=== PATIENT | female | born 1995 ===

== ENCOUNTER 2023-09-23 13:13 | Outpatient (AMB) | payer OTHER, SELFPAY ==
--- NOTE | 2023-09-23 13:21 | MHC.PC.OV ---
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 Transferring care from Unknown. Medical records have not been requested and have not received. Sales Engineer Engineered Products Required: Yes Sales Engineer Engineered Products Language: Lebanese Creole Sales Engineer Engineered Products Name: Luiz ([id number]) Information Interpreted: non-clinical & clinical Plaster Mixer: Present Accompanied by: Spouse Allergies No Known Allergies Allergy (Verified 09/23/23 13:43) Medication List - Last Reconciled 09/23/23 by ANEESH Louis No Known Home Meds Tobacco use date assessed: 09/23/23 Dental Screening Dental Screen Date: 09/23/23 Did you have a dental visit in the last 12 months?: No Did you have a dental problem in the last 6 months where you did not have access to dental care?: No Was dental information given to patient?: No HPI 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 Patient denies past medical history. Today we discussed patient's need for tetanus vaccine and cervical cancer screening. Patient reports dental exam last year. Denies problems with her eyes, does not see eye doctor. Patient is accompanied by her and 2 children. Patient speaks Lebanese Creole and online woods boss was incorporated into this visit [id number]. [facility] Surgical History No pertinent past surgical history Social History Housing: Other Housing Other:: [facility] Alcohol intake: never Patient Tobacco Use Status: Never used Tobacco e-Cigarette/Vaping Use: Never Used Second Hand Smoke Exposure: No service: No Current occupational status: employed Current occupation: [employer] Cognitive needs: No Hearing needs: No Vision needs: No Questionnaire PHQ-9 Over the last 2 weeks, how often have you been bothered by any of the following problems? 1. Little interest or pleasure in doing things: not at all 2. Feeling down, depressed, or hopeless: not at all 3. Trouble falling or staying asleep, or sleeping too much: not at all 4. Feeling tired or having little energy: not at all 5. Poor appetite or overeating: not at all 6. Feeling bad about yourself - or that you are a failure or have let yourself or your family down: not at all 7. Trouble concentrating on things, such as reading the newspaper or watching television: not at all 8. Moving or speaking so slowly that other people could have noticed. Or the opposite - being so fidgety or restless that you have been moving around a lot more than usual: not at all 9. Thoughts that you would be better off or of hurting yourself in some way: not at all Total score: 0 Depression Screening Interpretation: Negative Depression Screening Done: Yes 92435 - PHQ-9 Billing: Yes Source: Developed by Drs. Reggie Arango, Karolina Higuera, Germán Rowland and colleagues, with an educational daniel from [employer]. Thrive Questionnaire Date Thrive assessed: 09/23/23 I am a: Patient What is your living situation today?: I do not have a steady places to live Within the past 12 months, did the food you bought not last and you didn't have the money to get more?: Never true Within the past 12 months, did you worry whether your food would run out before you got money to buy more?: Never true Do you have trouble paying for medicines?: No Do you have trouble getting transportation to medical appointments?: No Do you have trouble paying your heating and electricity bill?: I choose not to answer this question Do you have trouble taking care of your child, family member or friend?: No Do you have trouble with day-to-day activities such as bathing, preparing meals, shopping, managing finances, etc.?: No Are you currently unemployed and looking for a job?: No Are you interested in more education?: No Currently or been in a relationship where the following occur: no concerns reported AUDIT C Alcohol Use Questionnaire (AUDIT-C) 1. How often do you have a drink containing alcohol?: Never Total Score: 0 Score Reviewed/Action Taken: No SHIRLENE-7 AMB Questionnaire SHIRLENE-7 Date SHIRLENE - 7 assessed: 09/23/23 Feeling nervous, anxious, or on edge: 0 = Not at all Not being able to stop or control worryin = Not at all Worrying too much about different things: 0 = Not at all Trouble relaxin = Not at all Being so restless that it is hard to sit still: 0 = Not at all Becoming easily annoyed or irritable: 0 = Not at all Feeling afraid as if something awful might happen: 0 = Not at all Total SHIRLENE-7 score (0-4 normal; 5-9 mild; 10-14 moderate; 15-21 severe): 0 Source: Developed by Drs. Reggie Arango, Karolina Higuera, Germán Rowland and colleagues, with an educational daniel from [employer]. SHIRLENE-7 Assessment Billing SHIRLENE-7 Assessment Tool: SHIRLENE-7 Assessment 40930 Review of Systems Const Denies body aches, Denies chills, Denies fever(s) and Denies headache(s) Eyes Denies change in vision ENT Denies dizziness, Denies otalgia, Denies headache(s), Denies nasal discharge, Denies sinus pain and Denies sore throat Card Denies chest pain, Denies edema, Denies lightheadedness and Denies dyspnea Resp Denies cough, Denies dyspnea and Denies wheezing GI Denies abdominal pain, Denies constipation, Denies diarrhea, Denies nausea and Denies vomiting Denies dysuria Musc Denies myalgias Skin/Breast Denies rash Neuro Denies dizziness and Denies headache(s) Aller/Immun Denies wheezing Physical exam (Primary Care) Vital Signs: Last Vital Signs Pulse 97 09/23/23 13:23 BP 120/72 09/23/23 13:23 Pulse Ox 97 09/23/23 13:23 Oxygen Delivery Method Room Air 09/23/23 13:23 BMI result Body Mass Index 27.3 Tobacco/Smoking Status: Tobacco use Status Tobacco use date assessed 09/23/23 09/23/23 13:22 Patient Tobacco Use Status Never used Tobacco 09/23/23 13:22 e-Cigarette/Vaping Use Never Used 09/23/23 13:22 PHQ-9: PHQ-9 Score PHQ-9: Total score 0 09/23/23 14:12 Depression Screening Interpretation: Negative Thrive Assessment: Date of Thrive Assessment Date Thrive assessed 09/23/23 09/23/23 13:22 Currently or been in a relationship where the following occur: no concerns reported Const General: cooperative and no acute distress Orientation/consciousness: patient oriented x3 HENMT Head: Yes normocephalic and Yes atraumatic Ears: TM's normal bilaterally Face and sinus: Yes sinuses nontender Mouth: oropharynx normal and moist mucous membranes Throat: Yes posterior oropharynx normal Eyes General: appearance normal, both eyes and all related structures Pupils: Equal, round and reactive pupils present EOM: EOMs intact bilaterally Neck Neck: Yes normal visual inspection, Yes full ROM and Yes no lymphadenopathy Thyroid: Thyroid normal Resp Effort & Inspection: normal respiratory effort and able to speak in complete sentences Auscultation: clear to auscultation bilaterally, no crackles, no rales, no rhonchi and no wheezes Cardio Rate: regular rate Rhythm: regular rhythm Heart sounds: S1 normal heart sound present, S2 normal heart sound present and no murmurs GI Palpation (GI): Soft to palpation, not firm, nontender, no guarding, not rigid and no hepatosplenomegaly Auscultation: normal bowel sounds General: No CVA tenderness Back/Spine/Pelvis Back: No CVA tenderness Skin General skin exam: no rashes or lesions noted Neuro General: patient oriented x3 Cranial nerves: Yes Equal, round and reactive pupils present Gait exam (Neuro): Normal gait present Extrem General: Yes full ROM and No edema Office Procedures Flu Questionnaire Does the patient have a severe egg allergy?: No Does the patient have severe life threatening allergies?: No Does the patient have a fever or illness today?: No Has the patient ever had Guillain-[place] Syndrome?: No Has the patient ever had any past reaction to a flu shot?: No Immunizations flu vacc [id number] 6mos up(PF) 60 mcg(15 mcgx4)/0.5 mL IM syringe Performing Provider: ANEESH Louis [place] [facility] [place] [facility] Administered by: ELENA Mullins on 09/23/23 14:17 Dose Route Admin Location Dispensed Lot Number Expiration Date NDC Rn Cvor 0.5 mL IM Right Deltoid 0.5 mL [id number] 05/16/24 63595-160-03 SFO[employer] VIS Given Date VIS Provided VIS Publication Date 09/23/23 Single Vaccine 21 Eligibility Eligibility Date Funding Source Not VFC Eligible 09/23/23 Private Adacel(Tdap Adolesn/Adult)(PF) 2 Lf-(2.5-5-3-5)-5 Lf/0.5 mL IM syringe Performing Provider: ANEESH Louis Performing Location: [facility] Administered by: ELENA Mullins on 09/23/23 14:17 Dose Route Admin Location Dispensed Lot Number Expiration Date NDC Rn Cvor 0.5 mL IM Left Deltoid 0.5 mL [id number] 12/05/25 68066-589-87 [employer] VIS Given Date VIS Provided VIS Publication Date 09/23/23 Single Vaccine 21 Eligibility Eligibility Date Funding Source Not VFC Eligible 09/23/23 State funds Assessment and Plan Assessment & Plan (1) Adult general medical exam: Code(s): Z00.00 - Encounter for general adult medical examination without abnormal findings Plan: Repeat in 1 year Blood work ordered (2) Cervical cancer screening: Code(s): Z12.4 - Encounter for screening for malignant neoplasm of cervix Orders: Orders Lipid Panel 09/23/23 Z00.00 - Encounter for general adult medical examination without abnormal findings TDaP State Immunization 09/23/23 Z00.00 - Encounter for general adult medical examination without abnormal findings, Z23 - Encounter for immunization Vitamin D 25-OH Total 09/23/23 Z00.00 - Encounter for general adult medical examination without abnormal findings TSH reflex Free T4 09/23/23 Z00.00 - Encounter for general adult medical examination without abnormal findings Comprehensive [place]. Panel Fast 09/23/23 Z00.00 - Encounter for general adult medical examination without abnormal findings Complete Blood Count Auto Diff 09/23/23 Z00.00 - Encounter for general adult medical examination without abnormal findings Influenza [id number] Immunization 09/23/23 Z23 - Encounter for immunization Referrals ACCOUNTANT HELPER Referral Z12.4 - Encounter for screening for malignant neoplasm of cervix Coding Level of Care Code New Pt Prev Care 18-39yr(44096 Diagnoses Adult general medical exam Z00.00 Cervical cancer screening Z12.4 Additional Codes SHIRLENE-7 Assessment Billing - SHIRLENE-7 Assessment Tool: SHIRLENE-7 Assessment 28432 ([id number])
[2023-09-23 13:23] VITALS: BP 120/72; PULSE 97; O2SAT 97; BMI 27.3
== END 2023-09-23 16:13 | disposition home or self-care (01) ==
PROVIDERS: PCP Nurse Practitioner Family; Visit Provider Nurse Practitioner Family
DX: Z23 Encounter for immunization (principal)
CPT/HCPCS: 90471; 90472; 90686; 90715; 99385

== ENCOUNTER 2023-12-22 15:12 | Outpatient (AMB) | payer OTHER, SELFPAY ==
--- NOTE | 2023-12-22 15:14 | A.OFFVIS_ITS ---
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 No complaints. The patient is interested in discussing different method of control No previous Pap/HPV PFSH Surgical History No pertinent past surgical history Social History (Reviewed 12/22/23 @ 15: by Jakob Calvillo MD) Housing: Other Housing Other:: Long Term Alcohol intake: never Patient Tobacco Use Status: Never used Tobacco e-Cigarette/Vaping Use: Never Used Second Hand Smoke Exposure: No service: No Current occupational status: employed Current occupation: [employer] Sexually active: Yes Sexual orientation: Straight/Heterosexual Gender identity: Female Cognitive needs: No Hearing needs: No Vision needs: No Female Reproductive History Menstrual Duration of menses: 3-5 days Date of last menstrual period: 12/14/23 control method: none Total pregnancies: 2 Full term: 2 Number of Living Children: 2 Review of Systems Const All systems reviewed & are unremarkable except as noted in HPI and below Card Reports as per HPI Resp Reports as per HPI GI Reports as per HPI and Reports no additional complaints Reports as per HPI Physical Exam Vital Signs: Last Vital Signs BP 132/84 12/22/23 15:18 BMI result Body Mass Index 27.3 Const General: cooperative, healthy appearing and comfortable Chest Chest palpation & inspection: normal inspection of the chest and normal palpation of entire chest wall Breast/axilla inspection: normal inspection of the breasts and normal inspection of the axillae Breast/axilla palpation: normal palpation of the breasts, normal palpation of the axillae and no axillary lymphadenopathy Resp Effort & Inspection: normal respiratory effort Auscultation: clear to auscultation bilaterally Percussion: percussion normal Cardio Palpation: normal PMI Rate: regular rate Rhythm: regular rhythm Heart sounds: no murmurs and no rubs Peripheral pulses: Peripheral pulses 2+ throughout GI Inspection: Yes normal to inspection Palpation (GI): Soft to palpation, nontender, no guarding, not rigid and No hepatosplenomegaly present Percussion: Yes normal to percussion Auscultation: normal bowel sounds Rectal Exam - Female: deferred General: Yes bladder normal to palpation External Female Exam: No lesion Speculum Exam - Vagina: normal appearance of the vagina, normal palpation, normal vaginal discharge and not erythematous Speculum Exam - Cervix: normal appearance of the cervix and normal palpation Bimanual exam- vagina & uterus: normal bimanual exam, normal palpation, uterine size normal, bladder normal to palpation, consistency normal and normal palpation Bimanual Exam- Adnexa, other: normal adnexae, no masses and no tenderness Assessment & Plan Assessment & Plan (1) Well woman exam: Code(s): Z01.419 - Encounter for gynecological examination (general) (routine) without abnormal findings Plan: Cotesting done. Counseled the patient about the recommended dietary allowance of 1000 mg of Calcium & 600 IU of vitamin D. The patient was instructed to perform monthly self-breast exams and to schedule an annual exam in a year; All questions answered and the patient verbalized understanding. Instructed the patient to schedule annual exam in a year (2) Family planning: Code(s): Z30.09 - Encounter for other general counseling and advice on contraception Plan: Discussed with the patient the different options of control including control pills/Nuvaring, Depo Medroxy Progesterone Acetate, IUD ( levonorgestrel, Copper), sterilization. All the pros, cons, risks and benefits of each were discussed with the patient. The patient decided to go ahead with [facility] so a more detailed discussion re: control pills including mechanism of action, benefits (regular menses, less dysmenorrhea, less risk of ovarian cancer, ...), risks ( DVT, PE, Strokes, LA, increased breast ca, others). Instructions were given to use a back- up method for contraception x 1st 2 weeks, and to schedule a 3 months appointment for blood pressure check Orders: Orders Pap Smear Today Z01.419 - Encounter for gynecological examination (general) (routine) without abnormal findings Medications: New desogestrel-ethinyl estradiol 0.15-0.03 mg (Apri) 1 tab PO DAILY 28 tabs 2RF 28 days Coding Level of Care Code New Pt Prev Care 18-39yr(21145 Diagnoses Well woman exam Z01.419 Family planning Z30.09
[2023-12-22 15:18] VITALS: BP 132/84; BMI 27.3
== END 2023-12-22 16:10 | disposition home or self-care (01) ==
LOC: HO.HWS 15:12
PROVIDERS: PCP Nurse Practitioner Family; Visit Provider Obstetrics & Gynecology
DX: Z01.419 Encounter for gynecological examination (general) (routine) without abnormal findings (principal); Z30.09 Encounter for other general counseling and advice on contraception
CPT/HCPCS: 99385

== ENCOUNTER 2023-12-22 15:12 | Outpatient (REF) | payer OTHER, SELFPAY ==
[2023-12-25 04:23] LABS: HPV mRNA E6/E7 rflx Not Detected (Not Detected)
== END 2023-12-22 15:13 | disposition home or self-care (01) ==
LOC: HO.LNP 15:12
PROVIDERS: PCP Nurse Practitioner Family; Visit Provider Obstetrics & Gynecology
DX: Z01.419 Encounter for gynecological examination (general) (routine) without abnormal findings (principal)
CPT/HCPCS: 87624; 88142; 99385

== ENCOUNTER 2024-03-30 09:37 | Outpatient (AMB) | payer OTHER, SELFPAY ==
--- NOTE | 2024-03-30 10:11 | A.OFFVIS_ITS ---
Vital Signs 03/30/24 10:12 Height 5 ft 6 in Weight 165 lb 5.547 oz BMI 26.7 BP 124/82 Intake Visit Reasons: control follow up Patient Relations Liaison Required: Yes Patient Relations Liaison Language: Armaan Mae Patient Relations Liaison Name: Al [id number] Information Interpreted: non-clinical & clinical Accompanied by: Spouse Allergies No Known Allergies Allergy (Verified 03/30/24 10:14) Is last menstrual period known: Yes Last menstrual period: 03/18/24 HPI Comments Details: The patient is presenting for control Pills follow up. The patient start having daily spotting after initiating control pills stopped it 2 weeks. The patient is interested in different method of control PFSH Surgical History No pertinent past surgical history Social History Housing: Other Housing Other:: [facility] Alcohol intake: never Patient Tobacco Use Status: Never used Tobacco e-Cigarette/Vaping Use: Never Used Second Hand Smoke Exposure: No service: No Current occupational status: employed Current occupation: [employer] Sexual orientation: Straight/Heterosexual Gender identity: Female Cognitive needs: No Hearing needs: No Vision needs: No Female Reproductive History Menstrual Date of last menstrual period: 03/18/24 Review of Systems Const All systems reviewed & are unremarkable except as noted in HPI and below Reports as per HPI and Reports no additional complaints GI Reports no additional complaints Reports no additional complaints Physical Exam Vital Signs: Last Vital Signs BP 124/82 03/30/24 10:12 BMI result Body Mass Index 26.7 Assessment & Plan Assessment & Plan (1) Family planning: Code(s): Z30.09 - Encounter for other general counseling and advice on contraception Category: Social Hx Plan: Discussed with the patient the different options of control including control pills/Nuvaring, DMPA, IUD (Mirena, Paraguard), sterilization. All the pros, cons, risks and benefits of each were discussed with the patient. The patient decided to go ahead with DMPA so a more detailed discussion re: Depo- Provera including mechanism of action, benefits (amenorrhea after initial dub, ...), risks ( mood lability, weight gain, initial dub, bone loss reversible, ? i ncrease Breast Cancer risk, others). Instructions were given to use a back up method for contraception till next day 1 of menses and will give the patient DMPA day1-5 next cycle. The patient verbalized understanding. Medications: New medroxyprogesterone (Depo-Provera) 150 mg IM .q 90 days 1 mL 3RF Discontinued desogestrel-ethinyl estradiol 0.15-0.03 mg (Apri) Discontinued Reason: Doctor's Order 1 tab PO DAILY 28 days 28 tabs 2RF Coding Level of Care Code Est Pt Level 3 (35289) Diagnoses Family planning Z30.09
[2024-03-30 10:12] VITALS: BP 124/82; BMI 26.7
== END 2024-03-30 11:45 | disposition home or self-care (01) ==
PROVIDERS: PCP Nurse Practitioner Family; Visit Provider Obstetrics & Gynecology
DX: Z30.09 Encounter for other general counseling and advice on contraception (principal)
CPT/HCPCS: 99213

== ENCOUNTER → 2024-03-30 09:37 | Outpatient (BNVA) | payer OTHER, SELFPAY | PROVIDERS: PCP Nurse Practitioner Family; Visit Provider Obstetrics & Gynecology | DX: Z30.09 Encounter for other general counseling and advice on contraception (principal) | CPT/HCPCS: 99212 ==

== ENCOUNTER → 2024-04-15 12:29 | Outpatient (BNVA) | payer OTHER, SELFPAY | PROVIDERS: PCP Nurse Practitioner Family; Visit Provider Obstetrics & Gynecology ==

== ENCOUNTER 2024-07-07 09:04 | Outpatient (AMB) | payer OTHER, SELFPAY ==
--- NOTE | 2024-07-07 09:35 | AM.OFFVISNUR ---
Vital Signs 07/07/24 09:36 Height 5 ft 6 in Weight 72.575 kg BMI 25.8 Intake Visit Reasons: DEPO Allergies No Known Allergies Allergy (Verified 03/30/24 10:14) Nursing Note Laure is here today for her scheduled Depo_provera inj. This visit was assisted by Armaan Vickers/ [employer] aide ID# [id number]. Pt denies any problems with her Depo-provera. Pt has not had any period and informed pt this is normal. Pt also c/o low back pain, referred to PCP . Follow up in 12 weeks for next inj. Office Procedures Depo Questionnaire If YES to any of the following questions, please consult a provider. Date of last injection: 04/15/24 Date of last gynecology exam: 03/30/24 Menstrual pattern since last injection has been: Not Applicable Irregular bleeding?: No Breast lumps or other breast changes?: No Changes in weight or appetite?: No Depression or changes in mood?: No Abnormal hair growth or loss?: No Skin problems (rash, acne, discoloration)?: No Pain at the injection site?: No Headaches?: No Nervousness?: No Abdominal pain or cramping?: No Dizziness or nausea?: No Fatigue or weakness?: No Decrease in sexual drive?: No Chest pain or shortness of breath?: No Swelling in arms or legs?: No Any other problems or concerns?: c/o low back pain, pt advised to call PCP or chiropractor. Form completed by?: Jessica Bentley LPN Office Meds Depo-Provera 150 mg/mL intramuscular syringe Performing Provider: Jakob Calvillo MD Performing Location: [facility] Administered by: Tish Bentley LPN on 07/07/24 09:37 Dose Route Admin Location Dispensed Lot Number Expiration Date [facility] Safety Engineer 150 mg IM left gluteus 1 mL [id number] 11/16/26 65901-327-17 [facility] Assessment & Plan Assessment & Plan Orders: Orders AMB Medroxyprogesterone Injection Patient Supplied Today Z30.9 - Encounter for contraceptive management, unspecified
[2024-07-07 09:36] VITALS: BMI 25.8
== END 2024-07-07 10:01 | disposition home or self-care (01) ==
LOC: HO.HWS 09:04
PROVIDERS: PCP Nurse Practitioner Family; Visit Provider Obstetrics & Gynecology
DX: Z30.9 Encounter for contraceptive management, unspecified (principal)

== ENCOUNTER → 2024-07-07 09:04 | Outpatient (BNVA) | payer OTHER, SELFPAY | PROVIDERS: PCP Nurse Practitioner Family; Visit Provider Obstetrics & Gynecology | DX: Z30.42 Encounter for surveillance of injectable contraceptive (principal) | CPT/HCPCS: 96372; 99211; J1050 ==

== ENCOUNTER 2024-09-28 09:08 | Outpatient (AMB) | payer OTHER, SELFPAY ==
--- NOTE | 2024-09-28 09:26 | AM.OFFVISNUR ---
Vital Signs 09/28/24 09:27 Height 5 ft 6 in Weight 163 lb BMI 26.3 Intake Visit Reasons: DEPO Allergies No Known Allergies Allergy (Verified 03/30/24 10:14) Nursing Note Laure is here today with her and daughter for her Depo-Provera inj. Guamanian/ Creole warp scouring vat tender Rik, ID# [id number], assisted with translation. Pt denied any problems or concerns, Follow up in 12 weeks. Pt brought to front end loader driver for scheduling. Office Procedures Depo Questionnaire If YES to any of the following questions, please consult a provider. Date of last injection: 07/07/24 Date of last gynecology exam: 03/30/24 Menstrual pattern since last injection has been: Not Applicable Irregular bleeding?: No Breast lumps or other breast changes?: No Changes in weight or appetite?: No Depression or changes in mood?: No Abnormal hair growth or loss?: No Skin problems (rash, acne, discoloration)?: No Pain at the injection site?: No Headaches?: No Nervousness?: No Abdominal pain or cramping?: No Dizziness or nausea?: No Fatigue or weakness?: No Decrease in sexual drive?: No Chest pain or shortness of breath?: No Swelling in arms or legs?: No Form completed by?: Jessica Bentley LPN Office Meds Depo-Provera 150 mg/mL intramuscular syringe Performing Provider: Jakob Calvillo MD Performing Location: [facility] [place] [facility] Administered by: Tish Bentley LPN on 09/28/24 09:27 Dose Route Admin Location Dispensed Lot Number Expiration Date [facility] Striping Machine Operator 150 mg IM rt. gluteus 1 mL [id number] 11/16/26 59128-353-84 [facility] Assessment & Plan Assessment & Plan Orders: Orders AMB Medroxyprogesterone Injection Patient Supplied Today Z30.9 - Encounter for contraceptive management, unspecified Medications: New Depo-Provera (medroxyprogesterone) 150 mg IM ONCE 1 mL 0RF NS Z30.9 - Encounter for contraceptive management, unspecified
[2024-09-28 09:27] VITALS: BMI 26.3
== END 2024-09-28 09:27 | disposition home or self-care (01) ==
LOC: HO.HWS 09:08
PROVIDERS: PCP Nurse Practitioner Family; Visit Provider Advanced Practice Midwife
DX: Z30.9 Encounter for contraceptive management, unspecified (principal)

== ENCOUNTER → 2024-09-28 09:08 | Outpatient (BNVA) | payer OTHER, SELFPAY | PROVIDERS: PCP Nurse Practitioner Family; Visit Provider Advanced Practice Midwife | DX: Z30.42 Encounter for surveillance of injectable contraceptive (principal) | CPT/HCPCS: 96372; 99211; J1050 ==

== ENCOUNTER 2025-04-25 09:07 | Outpatient (AMB) | payer OTHER, SELFPAY ==
[2025-04-25 09:10] VITALS: BP 140/100; BMI 26.3
--- NOTE | 2025-04-25 09:10 | MHC.OFFVIS ---
Vital Signs 04/25/25 09:10 Height 5 ft 6 in Weight 163 lb BMI 26.3 BP 140/100 H Intake Visit Reasons: Re start depo Allergies No Known Allergies Allergy (Verified 03/30/24 10:14) HPI Comments Details: The patient is presenting for Depo-Provera shot. The patient was scheduled few months ago for shot, her appointment was rescheduled. LMP was on 04/21/25, the patient reports no unprotected intercourse since then [facility] Surgical History No pertinent past surgical history Social History Housing: Other Housing Other:: Care Home Alcohol intake: never Patient Tobacco Use Status: Never used Tobacco e-Cigarette/Vaping Use: Never Used Second Hand Smoke Exposure: No service: No Current occupational status: employed Current occupation: [employer] Sexual orientation: Straight/Heterosexual Gender identity: Female Cognitive needs: No Hearing needs: No Vision needs: No Review of Systems Const All systems reviewed & are unremarkable except as noted in HPI and below Reports as per HPI and Reports no additional complaints GI Reports no additional complaints Reports no additional complaints Physical Exam Vital Signs: Last Vital Signs BP 140/100 H 04/25/25 09:10 BMI result Body Mass Index 26.3 Assessment & Plan Assessment & Plan (1) Family planning: Code(s): Z30.09 - Encounter for other general counseling and advice on contraception Category: Social Hx Plan: Discussed with the patient the different options of control including control pills/Nuvaring, DMPA, IUD (Mirena, Paraguard), sterilization. All the pros, cons, risks and benefits of each were discussed with the patient. The patient decided to go ahead with DMPA so a more detailed discussion re: Depo-Provera including mechanism of action, benefits (amenorrhea after initial dub, ...), risks ( mood lability, weight gain, initial dub, bone loss reversible, ? increase Breast Cancer risk, others). Depo-Provera 150 mg IM given today Instructions were given to use a back up method for contraception x7 days and to schedule next Depo-Provera appointment in 90 days. The patient verbalized understanding. Coding Level of Care Code Est Pt Level 3 (73588) Diagnoses Family planning Z30.09
--- NOTE | 2025-04-25 09:12 | MHC.OFFVIS ---
Vital Signs 04/25/25 09:10 Height 5 ft 6 in Weight 163 lb BMI 26.3 BP 140/100 H Intake Visit Reasons: Re start depo Hvac Controls Technician Required: Yes Hvac Controls Technician Language: Camerooniannelli Mae Hvac Controls Technician Services: Hvac Controls Technician Present ([id number]) Hvac Controls Technician Name: [place] [id number] Allergies No Known Allergies Allergy (Verified 03/30/24 10:14) [facility] Surgical History No pertinent past surgical history Social History Housing: Other Housing Other:: Snf Alcohol intake: never Patient Tobacco Use Status: Never used Tobacco e-Cigarette/Vaping Use: Never Used Second Hand Smoke Exposure: No service: No Current occupational status: employed Current occupation: [employer] Sexual orientation: Straight/Heterosexual Gender identity: Female Cognitive needs: No Hearing needs: No Vision needs: No Physical Exam Vital Signs: Last Vital Signs BP 140/100 H 04/25/25 09:10 BMI result Body Mass Index 26.3 Coding
--- OUTSIDE RECORDS SUMMARY | 2025-04-25 09:31 | XMS_ITS | Clinical Summary ---
Author Organization [facility] Address [address] [place] [address] Phone Care Team Providers Care Utility Assembler Name Role Phone Physician, No Pcp Primary Care Provider Unavaila ble Allergies No known active allergies Medications ibuprofen (ADVIL,MOTRIN) 600 mg tablet Take 1 tablet (600 mg total) by mouth every 6 (six) hours if needed for mild pain for up to 30 doses. 30 tablet 02/19/2025 Active Encounters Date Type Department Care Team Description 02/19/2025 9:11 AM EDT - 02/19/2025 11:15 AM EDT Emergency [facility] Emergency [address] [place] [address] Acute pain of both knees (Primary Dx) Discharge Disposition: Home or Self Care from Last 3 Months Social History Tobacco Use Types Packs/Day Years Used Date Smoking Tobacco: Never Smokeless Tobacco: Never Tobacco Cessation:Counseling Given: Not Answered Alcohol Use Standard Drinks/Week Comments Never 0 (1 standard drink = 0.6 oz pur e alcohol) Comments Unknown Sex and Gender Information Value Date Recorded Sex Assigned at Female 02/19/2025 9:57 AM EDT Legal Sex Female 8:39 AM EDT Gender Identity Female 02/19/2025 9:57 AM EDT Sexual Orientation Straight 02/19/2025 9: 57 AM EDT Obstetrics History Last Filed Vital Signs Vital Sign Reading Time Taken Comments Blood Pressure 125/92 02/19/2025 8:46 AM EDT Pulse 98 02/19/2025 8:46 AM EDT Temperature 36.5 ??C (97.7 ??F) 02/19/2025 8:46 AM ED T Respiratory Rate 20 02/19/2025 8:46 AM EDT Oxygen Saturation 100% 02/19/2025 8:46 AM EDT Inhaled Oxygen Concentration - - Weight 75 kg (165 lb 5.5 oz) 02/19/2025 8:46 AM EDT Height 170 cm (5' 6.93 ) 02/19/2025 8:46 AM EDT Body Mass Index 25.95 02/19/2025 8:46 AM EDT Plan of Treatment Health Maintenance Due Date Last Done Comments DTaP,Tdap,and Td Vaccines (1 - Tdap) 01/28/2012 Hepatitis B Vaccines (1 of 3 - 19+ 3-dose series) 01/28/2012 Cervical Cancer Screening: P ap Smear 2014 COVID-19 Vaccine ( - 2023-2 5 season) 2024 Depression Screening 02/19/2025 HIV Screening 02/19/2025 Hepatitis C Screening 02/19/2025 Social Influencers of Health Screening 02/19/2025 Influenza Vaccine (Season Ended) 2025 HIB Vaccines Aged Out No longer eligi ble based on patient's age to complete this topic HPV Vaccines Aged Out No longer eligi ble based on patient's age to complete this topic Hepatitis A Vaccines Aged Out No long er eligible based on patient's age to complete this topic IPV Vaccines Aged Out No longer eligi ble based on patient's age to complete this topic MMR Vaccines Aged Out No longer eligi ble based on patient's age to complete this topic Meningococcal ACWY Vaccine Aged Out N o longer eligible based on patient's age to complete this topic Meningococcal B Vaccine Aged Out No l onger eligible based on patient's age to complete this topic Pneumococcal Vaccine: Pediat rics (0 to 5 Years) and At-Risk Patients (6 to 64 Years) Aged Out No longer eligible b ased on patient's age to complete this topic RSV Immunization Patients Un kitty 20 months Aged Out No longer eligible b ased on patient's age to complete this topic Varicella Vaccines Aged Out No longer eligible based on patient's age to complete this topic Procedures Procedure Name Priority Date/Time Associated Diagnosis Comments XR KNEE 4+ VIEWS BILAT STAT 02/19/2025 10:25 AM EDT POC , URINE DIAGNOSTIC STAT 02/19/2025 10:00 AM EDT from Last 3 Months Results * XR Knee 4+ Views bilat (02/19/2025 10:25 AM EDT) Anatomical Region Laterality Modality Lower Extremities, Knee Bilateral Radiogra phic Imaging 02/19/2025 10:4 8 AM EDT Impressions 02/19/2025 10:51 AM EDT No abnormality demonstrated. No etiology for pain is identified. -------- FINAL REPORT -------- Dictated By: Yung Monroy Dictated Date: 02/19/2025 10:48 ET Assigned Physician: Yung Monroy Reviewed and Electronically Signed By: Yung Monroy Signed Date: 02/19/2025 10:51 ET Workstation ID: [id number] Transcribed By: Self Edit Transcribed Date: 02/19/2025 10:48 ET Narrative 02/19/2025 10:51 AM EDT EXAMINATION: LEFT KNEE RIGHT KNEE CLINICAL INFORMATION: Pain. No known trauma COMPARISON: None. TECHNIQUE: 4 views right knee 4 views left knee FINDINGS: Right knee: The alignment is normal. The joint spaces are preserved. There is no fracture, focal lesion or periosteal new bone. No evidence of joint fluid. No opaque loose body. No significant osteophyte or erosion. Left knee: The alignment is normal. The joint spaces are preserved. There is no fracture, focal lesion or periosteal new bone. No evidence of joint fluid. No opaque loose body. No significant osteophyte or erosion. Procedure Note Yung Monroy MD - 02/19/2025 EXAMINATION: LEFT KNEE RIGHT KNEE CLINICAL INFORMATION: Pain. No known trauma COMPARISON: None. TECHNIQUE: 4 views right knee 4 views left knee FINDINGS: Right knee: The alignment is normal. The joint spaces are preserved. There is nofracture, focal lesion or periosteal new bone. No evidence of joint fluid.No opaque loose body. No significant osteophyte or erosion. Left knee: The alignment is normal. The joint spaces are preserved. There is nofracture, focal lesion or periosteal new bone. No evidence of joint fluid.No opaque loose body. No significant osteophyte or erosion. IMPRESSION: No abnormality demonstrated. No etiology for pain is identified. -------- FINAL REPORT -------- Dictated By: Yung Monroy Dictated Date: 02/19/2025 10:48 ET Assigned Physician: Yung Monroy Reviewed and Electronically Signed By: Yung Monroy Signed Date: 02/19/2025 10:51 ET Workstation ID: [id number] Transcribed By: Self Edit Transcribed Date: 02/19/2025 10:48 ET Traci MARTINEZ IMG XR PROCEDURES Final Result * POC , urine manually resulted (02/19/2025 10:00 AM EDT) HCG, Ur POC Negative Negative Urine Urine specimen obtained by clean catch procedure / Unknown 02/19/2025 10:00 AM EDT Traci MARTINEZ POINT OF CARE TEST ENTER /EDIT ORDERABLES Final Result from Last 3 Months Insurance PLAN Care Teams Utility Assembler Relationship Specialty Start Date End Date Physician, No Pcp PCP - General 02/19/25
== END 2025-04-25 09:42 | disposition home or self-care (01) ==
PROVIDERS: PCP Nurse Practitioner Family; Visit Provider Obstetrics & Gynecology
DX: Z30.09 Encounter for other general counseling and advice on contraception (principal); Z30.9 Encounter for contraceptive management, unspecified; Z32.02 Encounter for pregnancy test, result negative
CPT/HCPCS: 99213

== ENCOUNTER → 2025-04-25 09:07 | Outpatient (BNVA) | payer OTHER, SELFPAY | PROVIDERS: PCP Nurse Practitioner Family; Visit Provider Obstetrics & Gynecology | DX: Z30.013 Encounter for initial prescription of injectable contraceptive (principal) | CPT/HCPCS: 81025; 96372; 99212; J1050 ==

== ENCOUNTER 2025-07-19 10:59 | Outpatient (AMB) | payer OTHER, SELFPAY ==
[2025-07-19 11:19] VITALS: BP 142/84; BMI 28.9
--- NOTE | 2025-07-19 11:19 | AM.OFFVISNUR ---
Vital Signs 07/19/25 11:19 Height 5 ft 3 in Weight 163 lb BMI 28.9 BP 142/84 H Blood Pressure Location Lt brachial Position Sitting Intake Visit Reasons: DEPO Allergies No Known Allergies Allergy (Verified 03/30/24 10:14) Nursing Note Pt is here today for her scheduled Depo-Provera exam. Moroccan / Creole senior sales manager assisted with translation, Preston ID#[id number]. Pt denies any new medical problems , occ headaches which pt feels are from daily stress. BP 142/ 84. Pt tolerated inj well. Follow up in 12 weeks, call prn for any problems or concerns. AG scheduled for September 2025. Office Procedures Depo Questionnaire If YES to any of the following questions, please consult a provider. Date of last injection: 04/25/25 Date of last gynecology exam: 12/22/23 Menstrual pattern since last injection has been: Not Applicable Irregular bleeding?: No Breast lumps or other breast changes?: No Changes in weight or appetite?: No Depression or changes in mood?: No Abnormal hair growth or loss?: No Skin problems (rash, acne, discoloration)?: No Pain at the injection site?: No Headaches?: Yes (has headaches on and off , does not feel related to Depo-Provera inj.) Nervousness?: No Abdominal pain or cramping?: No Dizziness or nausea?: No Fatigue or weakness?: No Decrease in sexual drive?: No Chest pain or shortness of breath?: No Swelling in arms or legs?: No Form completed by?: Jessica Bentley LPN Office Meds Depo-Provera 150 mg/mL intramuscular syringe Performing Provider: Jakob Calvillo MD Performing Location: [facility] [place] [facility] Administered by: Tish Bentley LPN on 07/19/25 11:22 Dose Route Admin Location Dispensed Lot Number Expiration Date [facility] Pipe Layer 150 mg IM RGM 1 mL [id number] 03/16/27 72478-170-69 [email or web address] [facility] Total Dispensed Waste 1 mL 0 % Assessment & Plan Assessment & Plan Orders: Orders AMB Medroxyprogesterone Injection Patient Supplied Today Z30.9 - Encounter for contraceptive management, unspecified Coding Level of Care Code Established Pt Est Pt Level 1 (48191) Patient Type Established History Problem Focused Exam Problem Focused Medical Decision Making Straight Forward Time Spent (min) 25
--- OUTSIDE RECORDS SUMMARY | 2025-07-19 12:34 | XMS_ITS | Clinical Summary ---
Author Organization [facility] Address [address] [place] [address] Phone Care Team Providers Care Electrical Logging Engineer Name Role Phone Physician, No Pcp Primary Care Provider Unavaila ble Allergies No known active allergies Medications ibuprofen (ADVIL,MOTRIN) 600 mg tablet Take 1 tablet (600 mg total) by mouth every 6 (six) hours if needed for mild pain for up to 30 doses. 30 tablet 02/19/2025 Active Social History Tobacco Use Types Packs/Day Years [...] 98 02/19/2025 8:46 AM EDT Temperature 36.5 C (97.7 F) 02/19/2025 8:46 AM EDT Respiratory Rate 20 02/19/2025 8:46 AM EDT [...] Screening: P ap Smear 2014 COVID-19 Vaccine (1 - 2023-2 5 season) 2024 Depression Screening 11/17/2024 HIV Screening 02/19/2025 Hepatitis C Screening 02/19/2025 Social Influencers of Health Screening 02/19/2025 Influenza Vaccine (#1) 2025 HIB Vaccines Aged Out No longer [...] 5 Years) and At-Risk Patients (6 to 49 Years) Aged Out No longer eligible b ased on patient's age to complete this topic RSV Immunization Patients Un kitty 20 months Aged Out No longer eligible b ased on patient's age to complete this topic Varicella Vaccines Aged Out No longer eligible based on patient's age to complete this topic Insurance PLAN Care Teams Electrical Logging Engineer Relationship Specialty Start Date End Date Physician, No Pcp PCP - General 02/19/25
== END 2025-07-19 11:18 | disposition home or self-care (01) ==
LOC: HO.HWS 10:59
PROVIDERS: PCP Nurse Practitioner Family; Visit Provider Obstetrics & Gynecology
DX: Z30.9 Encounter for contraceptive management, unspecified (principal)

== ENCOUNTER → 2025-07-19 10:59 | Outpatient (BNVA) | payer OTHER, SELFPAY | PROVIDERS: PCP Nurse Practitioner Family; Visit Provider Obstetrics & Gynecology | DX: Z30.013 Encounter for initial prescription of injectable contraceptive (principal) | CPT/HCPCS: 96372; 99211; J1050 ==

== ENCOUNTER 2025-10-10 13:00 | Outpatient (AMB) | payer OTHER, SELFPAY ==
[2025-10-10 14:54] VITALS: BMI 31.4
--- NOTE | 2025-10-10 14:54 | AM.OFFVISNUR ---
Vital Signs 10/10/25 14:54 Height 5 ft 3 in Weight 177 lb BMI 31.4 Intake Visit Reasons: DEPO Allergies No Known Allergies Allergy (Verified 03/30/24 10:14) Nursing Note Laure is here today with her for her Depo-Provera inj. INJ given in rt. gluteus with no complaints. Pt was offered Swazi/ Creoloe supervisor park workers and declined. Pt was brought to desktop support manager to schedule Annual exam and next Depo-provera inj. Office Procedures Depo Questionnaire If YES to any of the following questions, please consult a provider. Date of last injection: 10/10/25 Menstrual pattern since last injection has been: Not Applicable Irregular bleeding?: No Breast lumps or other breast changes?: No Changes in weight or appetite?: Yes (gain) Depression or changes in mood?: No Abnormal hair growth or loss?: No Skin problems (rash, acne, discoloration)?: No Pain at the injection site?: No Headaches?: No Nervousness?: No Abdominal pain or cramping?: No Dizziness or nausea?: No Fatigue or weakness?: No Decrease in sexual drive?: No Chest pain or shortness of breath?: No Swelling in arms or legs?: No Form completed by?: Jessica denis LPN Office Meds Depo-Provera 150 mg/mL intramuscular syringe Performing Provider: Jakob Calvillo MD Performing Location: [facility] [place] [facility] Administered by: Tish Denis LPN on 10/10/25 14:55 Dose Route Admin Location Dispensed Lot Number Expiration Date [facility] Rn [facility] 150 mg IM Rt. gluteus 1 mL [id number] 01/14/26 54076-982-79 [employer] [facility] Total Dispensed Waste 1 mL 0 % Assessment & Plan Assessment & Plan Orders: Orders AMB Medroxyprogesterone Injection Patient Supplied Today Z30.9 - Encounter for contraceptive management, unspecified Coding Level of Care Code Established Pt Est Pt Level 1 (57084) Patient Type Established History Problem Focused Exam Problem Focused Medical Decision Making Straight Forward Time Spent (min) 20
== END 2025-10-10 13:55 | disposition home or self-care (01) ==
LOC: HO.HWS 13:00
PROVIDERS: Visit Provider Obstetrics & Gynecology
DX: Z30.9 Encounter for contraceptive management, unspecified (principal)

== ENCOUNTER → 2025-10-10 13:00 | Outpatient (BNVA) | payer OTHER, SELFPAY | PROVIDERS: Visit Provider Obstetrics & Gynecology | DX: Z30.013 Encounter for initial prescription of injectable contraceptive (principal) | CPT/HCPCS: 96372; 99211; J1050 ==